=== PATIENT | female | born 1940 | race Caucasian/White ===

== ENCOUNTER → 2018-03-22 | Day surgery (SDC) | payer MEDICARE, BC ==
[~2018-03-22] MED LIST: ASPI81CH25 PO; DIOV160T3 PO; DOXE10CA PO; GABA300C5 PO; LIDOCAINE HCL 1% 30 ML VIAL OTHER ONE; MAGN500T5 PO; METO25TA3 PO; MIRA50TA PO; PAIN PUMP MORPHINE; PROPOFOL 200 MG/20 ML AMP IV ONE; SIMV20TA PO; SODIUM CHLORIDE 0.9% 10 ML VIAL ONE; TRIAMCINOLONE ACETONIDE 40 MG/ML VIAL NERV BLOCK ONE; ZOLO50TA PO; methylPREDNISolone ACETATE 80 MG/ML VIAL ONE
--- NOTE | 2018-03-22 09:08 | M6 ---
cc: Main Guadalupe MD DATE: 03/22/2018 DATE OF : 1940 PROCEDURE: Fluoroscopically-guided L5-S1 interlaminar epidural steroid injection. History and physical was completed and signed. Consent was signed. Procedure site was marked. Medications were listed and reconciled. Pain score was recorded. Allergies were noted. Time out was taken. Fluoroscopy time was recorded where applicable. Sedation was administered or directed by Dr. Guadalupe. The patient was given oxygen. The patient was monitored by a registered nurse. Total procedure time was greater than 15 minutes. PROCEDURE NOTE: IV was started. Blood pressure cuff, pulse oximeter and EKG were applied. The patient was placed in the prone position on a Woody table, sedated with small amounts of propofol titrated to effect. Vital signs were monitored and remained stable throughout the procedure. Fluoroscopy was used to visualize the L5-S1 interlaminar space. The skin was infiltrated with 1% Xylocaine, using a 27-gauge needle. Then, a 3-1/2 inch, 18-gauge Hendrix needle was advanced using fluoroscopic guidance and the loss of resistance technique into the epidural space at L5-S1, slightly to the right of the midline. There was negative aspiration for blood or any other type of fluid and the patient was given 10 mL of Omnipaque and 80 mg of Depo-Medrol. Following this, the patient was taken to the recovery room with stable vital signs, neurologically intact. MD ELLEN Shore/ANN , 08:50 AM , 09:07 AM
--- NOTE | 2018-03-22 09:09 | M6 ---
cc: Main Guadalupe MD DATE: 03/22/2018 PROCEDURE: Epidurogram. History and physical was completed and signed. Consent was signed. Procedure site was marked. Medications were listed and reconciled. Pain score was recorded. Allergies were noted. Time out was taken. Fluoroscopy time was recorded where applicable. Sedation was administered or directed by Dr. Guadalupe. The patient was given oxygen. The patient was monitored by a registered nurse. Total procedure time was greater than 15 minutes. PROCEDURE NOTE: An epidurogram was done on Ms. Giles today to obtain information that could not be obtained in any other manner. X-ray pictures were saved to her permanent chart. Ms. Giles has severe scoliosis concave to the right. She has had previous lumbar surgery. She is having right lower extremity pain radiating all the way to her foot. A needle was placed at the L5-S1 interlaminar space, right of the midline and 10 mL of Omnipaque dye was slowly injected. I anticipated some cephalad spread of the dye, but there was absolutely no cephalad spread of the dye. The dye collected at the L5 level and did spread in a caudal direction toward the S1 and S2 levels. With this information, I believe that in the future interlaminar epidural steroid injections might not be very effective and it probably would be better in this patient to perform fluoroscopically guided transforaminal epidural steroid injections at specific nerve root levels. Main Guadalupe MD [facility]OMEO , 08:53 AM , 09:07 AM
== END | disposition home or self-care (01) ==
LOC: PHSDC 06:52
PROVIDERS: ATTEND Pain Medicine Interventional Pain Medicine
DX: M54.5 Low back pain (principal)
CPT/HCPCS: 62323; 99152; J1040; J3301